=== PATIENT | male | born 1975 | race Caucasian/White ===

== ENCOUNTER 2016-06-28 15:22 | Emergency (ER) | payer OTHER ==
--- NOTE | 2016-06-28 15:28 | EDPHY ---
HPI/HX/ROS/PE/MDM Narrative: CHIEF COMPLAINT: Forearm laceration. HISTORY OF PRESENT ILLNESS: The patient is a 40-year-old male, brought in by EMS as a LIMITED TRAUMA. A sheet of glass fell on the patient while he was working. He sustained a large laceration to the dorsal aspect of his forearm. Fire was first on scene and applied a tourniquet at 1455, 30 minutes prior to arrival. The patient was wearing a hard hat. He denies any further injury. The glass only struck his left arm. Denies head, chest, abdomen, back trauma. Left hand tingling and numb. Otherwise well prior to event. Denies foreign body sensation. REVIEW OF SYSTEMS: Aside from elements discussed in the HPI, a comprehensive 10-point review of systems was reviewed and is negative. PAST MEDICAL HISTORY: Knee surgery. SOCIAL HISTORY: Works in construction. VITAL SIGNS: Reviewed by me; see NN. GENERAL: Well-developed, well-nourished, in no acute distress. HEENT: Head: Atraumatic, normocephalic. Face: Atraumatic. Oropharynx: No trauma, normal occlusion. Neck: Nontender to palpation, no pain with range of motion, no adenopathy. CHEST: Nontender, no subcutaneous air palpable. LUNGS: Clear to auscultation bilaterally, breath sounds are equal. CARDIAC: Regular rate and rhythm, no rubs, murmurs or gallops. ABDOMEN: Soft, nontender, nondistended, bowel sounds normal. BACK: No CVA tenderness, no spinal tenderness. No trauma seen. EXTREMITIES: 3cm laceration to the dorsal aspect of the left forearm. Hand is dusky, tourniquet in place. NEURO: Alert and oriented x3, grossly nonfocal. SKIN: Warm and dry, no rash. Portions of this note were transcribed by a director of medical staff services. I personally performed a history, physical exam, medical decision making, and confirmed accuracy of information the transcribed note. ED Course: The patient presents as a limited trauma activation. A large glass sheet fell on top of the patient while at a job site. The patient sustained a large laceration to the dorsal aspect of his left forearm. Fire applied a tourniquet and the patient was transported to the ED by EMS. The tourniquet was in place for 30 minutes prior to arrival. I removed the tourniquet slowly. He has a 3cm laceration to the dorsal aspect of the left forearm. Radial and ulnar pulses are intact. Brisk bleeding from wound.; possibly large dorsal vein. Full ROM in fingers. Radial, median, ulnar sensation intact. Flexor tendon and extensor tendon function appear to be intact. Wound dressed; ancef given. Tourniquet reapplied for hemorrhage control. Dr. Larson consulted. Dr Larson evaluated patient in ED. Patient taken to OR for exploration and repair. MDM: Differential diagnosis for the patient's injury was considered including but not limited to contusion, abrasion, laceration, arterial injury, tendon injury, venous injury, near amputation, open fracture, or dislocation. Departure - Departure Disposition: To OP Cath/Surgery Clinical Impression: Forearm laceration, Venous bleed Condition: Fair Referrals: Patient,NotPresent [Unknown] - As per Instructions Report Scribed for: Veda Helton Report Scribed by: Mylene Ortiz Date of Report: 06/28/16 Time of Report: 15:28
[2016-06-28] MEDS ORDERED: HYDROmorphONE/DILAUDID 1 MG/ML SYR ONE (15:33)
[2016-06-28] MEDS ORDERED: ceFAZolin 2 GM/DEXTROSE 100 ML IV ONE (15:49)
[2016-06-28] MEDS ORDERED: BUPIVACAINE 0.5% 30 ML SDV ONE (16:24)
[2016-06-28] MEDS ORDERED: fentaNYL 250 MCG/5 ML INJ ONE (16:28)
[2016-06-28] MEDS ORDERED: PROPOFOL 200 MG/20 ML VIAL ONE (16:28)
[2016-06-28] MEDS ORDERED: CEFAZOLIN 2 GM/DEXTROSE/100 ML BAG IV ONE (16:44)
--- NOTE | 2016-06-28 17:29 | GHP ---
[f rep st] HISTORY AND PHYSICAL DATE OF ADMISSION: 06/28/2016 CHIEF COMPLAINT: Limited trauma activation. Left forearm laceration. 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 He sustained a laceration with a significant amount of blood loss. A tourniquet was placed at the scene. The wound was explored in the OR and there was significant amount of venous bleeding. He had pain at his forearm site. He had complete sensation. He denies any other injuries. He denies loss of consciousness. PAST MEDICAL HISTORY: None. PAST SURGICAL HISTORY: Knee arthroscopy. SOCIAL HISTORY: He vapes on occasion. He does not drink alcohol. He is with a 6-month-old baby. FAMILY HISTORY: Noncontributory. REVIEW OF SYSTEMS: He is feeling flushed, diaphoretic, and has pain at his forearm. Otherwise 10-point review of systems is negative. PHYSICAL EXAM: VITAL SIGNS: Reviewed. GENERAL: A pleasant well-nourished, well-groomed man sitting up in [facility] [place]. HEENT: Normocephalic. No gross hearing deficits. Mucous membranes moist. Pupils equal and round. No scleral icterus. LUNGS: Clear to auscultation bilaterally. No increased work of breathing. CARDIAC: Regular rate. No peripheral edema. 2+ radial and ulnar pulse ABDOMEN: Deferred. : Deferred. SKIN: He has a 7 cm laceration over the dorsal aspect of his left forearm. There is bleeding when pressure is not directly applied. I cannot see obvious vessel. MUSCULOSKELETAL: Strength 5/5 upper and lower extremities. Neuro: Intact IMPRESSION AND PLAN: The patient is a 40-year-old with a laceration to his arm. Due to the significant bleeding and the depth of the wound, I will take him to the operating room for exploration and likely ligation of the vein. The risks and benefits including but not limited to stroke, heart attack, , blood clots, infection, bleeding, delayed wound healing were discussed. He had his questions answered to his satisfaction and signed the informed consent. /[id number]/MODL MTDD
--- NOTE | 2016-06-28 17:44 | GOP ---
[f rep st] OPERATIVE REPORT DATE OF OPERATION: 06/28/2016 SURGEON: Stefany Spencer MD ANESTHESIOLOGIST: Daljit Jimenez MD/general. PREOPERATIVE DIAGNOSIS: Left forearm laceration. POSTOPERATIVE DIAGNOSIS: Left forearm laceration. PROCEDURE PERFORMED: Exploration of left forearm and ligation of dorsal vein. FINDINGS: He had a large dorsal vein that was bleeding. SPECIMENS: None. ESTIMATED BLOOD LOSS: 25 cc. INDICATIONS: The patient is a 40-year-old with a laceration to his left arm. DESCRIPTION OF PROCEDURE: The patient was brought into the operating room, placed supine on the tab le, and general anesthesia was administered. A tourniquet was reapplied to his left upper arm but n ot inflated. His arm was prepped with Betadine and draped in the usual sterile fashion. Due to the significant bleeding, we did inflate the tourniquet to explore the wound. I found a large vein pro ximally and distally that was transected. I ligated each side with 3-0 Vicryl. I explored the woun d further and no other injuries were noted. The wound was irrigated copiously. There was 1 breach in the fascia which was reapproximated with 3-0 Vicryl. The skin was closed with 3-0 nylon. A Mepi emily silver impregnated dressing was applied followed by an Abelino wrap. He was awakened in the operati ng room, extubated, transferred to PACU in stable condition. /[id number]/MODL
== END 2016-06-28 16:23 | disposition home or self-care (01) ==
PROC: 05QY0ZZ Repair Upper Vein, Open Approach (ICD-10-PCS; principal; 2016-06-28 16:30)
DX: S55.212A Laceration of vein at forearm level, left arm, initial encounter (principal); W25.XXXA Contact with sharp glass, initial encounter; W20.8XXA Other cause of strike by thrown, projected or falling object, initial encounter; Y92.61 Building [any] under construction as the place of occurrence of the external cause; Y93.H3 Activity, building and construction; Y99.0 Civilian activity done for income or pay
CPT/HCPCS: 82947-QW; J0690; J1170; J2704; J3010

== ENCOUNTER → 2016-06-30 | Outpatient (CLI) | payer OTHER | LOC: FIMAGING 16:06 | PROVIDERS: ATTEND Surgery | DX: S49.92XD Unspecified injury of left shoulder and upper arm, subsequent encounter (principal) ==